=== PATIENT | female | born 1970 | race Caucasian/White ===

== ENCOUNTER → 2020-10-31 10:14 | Outpatient (CLI) | payer OTHER, MEDICAID, SELFPAY ==
--- NOTE | 2020-10-31 | DI.MRI.S_ITS ---
PROCEDURE: MR LUMBAR SPINE WO CON INDICATIONS: Spinal stenosis, lumbar region with neurogenic cla TECHNIQUE: Noncontrast sagittal T1 spin echo and T2 fast echo, sagittal STIR, axial T1 and T2 fast spin echo through the lumbar spine. In cases with scoliosis, additional coronal T2 fast spin echo may be performed. COMPARISON: [facility], CR, XR LUMBAR SPINE WITH OLBIQUES PLUS FLEXION EXTENSION, 11/30/2018, 10:20. FINDINGS: Image quality: Excellent. Alignment and Curvature: Vertebral bodies are labeled 1 through 5. There is grade 1 anterolisthesis of L5 on S1 measuring 7 mm with pars defect at L5. There is trace retrolisthesis approximately 2 mm of L2 on L3, L3 on L4. Bone Marrow: Marrow is of normal overall signal. No acute vertebral body compression fractures. Spinal Cord: Conus medullaris terminates at the L1 level. Visualized cord demonstrates normal signal and size. Paraspinous Soft Tissues: No paravertebral masses. Discs: Moderate desiccation is present throughout the lumbar spine, moderate to severe at L5-S1. L1-L2: No disc bulge, spinal stenosis or foraminal narrowing. Mild facet and ligamentum flavum hypertrophy. L2-L3: Minimal disc bulge without spinal stenosis. No foraminal narrowing. Facet and ligamentum flavum hypertrophy are present. L3-L4: Mild disc bulge without spinal stenosis. Minimal to mild bilateral foraminal narrowing with facet and ligamentum flavum hypertrophy. L4-L5: Mild disc bulge with mild spinal stenosis. Moderate right and minimal to mild left foraminal narrowing with facet and ligamentum flavum hypertrophy. L5-S1: Mild disc bulge with mild spinal stenosis. Severe bilateral foraminal narrowing, left greater than right with nerve root compression bilaterally most severe on the left. Facet hypertrophy is present. IMPRESSION: 1. Grade 1 anterolisthesis of L5 on S1 with severe bilateral foraminal narrowing and nerve root compression most notably on the left. Pars defect is present. 2. Scattered multilevel disc bulges. Dictated by: Jaelyn Gudino M.D. on 10/31/2020 at 11:35 Approved by: Jaelyn Gudino M.D. on 10/31/2020 at 11:46
== END ==
PROVIDERS: Referring Provider Physical Medicine & Rehabilitation Pain Medicine; Visit Provider Physical Medicine & Rehabilitation Pain Medicine
DX: M48.062 Spinal stenosis, lumbar region with neurogenic claudication (principal); M48.07 Spinal stenosis, lumbosacral region; M43.17 Spondylolisthesis, lumbosacral region; M51.26 Other intervertebral disc displacement, lumbar region; M51.27 Other intervertebral disc displacement, lumbosacral region
CPT/HCPCS: 72148